=== PATIENT | female | born 1990 ===

== ENCOUNTER 2018-03-21 21:46 | Emergency (ER) | payer OTHER ==
[2018-03-22 01:48] VITALS: BP 111/67
[2018-03-22 01:56] LABS: Amorphous Crystals,Urine 1+; Bilirubin,Urine NEG (Negative); Blood,Urine NEG (Negative); Color,Urine Yellow (Yellow); Mucus,Urine FEW /HPF; Protein,Urine <15 mg/dL mg/dL (Negative); Urobilinogen,Urine < 2.0 mg/dL (<2.0); WBC,Urine < 1.0 /HPF (0.0-6.0)
[2018-03-22 02:31] LABS: HCG Qualitative,Urine Negative (Negative)
== END 2018-03-22 03:58 | disposition left against medical advice (07) ==
LOC: ED 21:46
DX: R10.9 Unspecified abdominal pain (principal); Z53.21 Procedure and treatment not carried out due to patient leaving prior to being seen by health care provider
CPT/HCPCS: 81001; 81025